=== PATIENT | female | born 1990 | race Two or more races ===

== ENCOUNTER 2020-11-22 08:13 | Inpatient (IN) ==
[2020-11-22] MEDS ORDERED: OXYTOCIN 30 UNITS/500 ML BAG IV PRN ×2 (08:42→11:06)
[2020-11-22 09:20] LABS: Hematocrit (blood only) 34.2 % (37-47); Hemoglobin 10.9 g/dL (12.0-16.0); Mean Corpuscular Hemoglobin 22.1 pg (25-34); Mean Corpuscular Hgb Conc 31.9 g/dL (32-36); Mean Corpuscular Volume 69.2 fL (80-100); Mean Platelet Volume 11.4 fL (7.4-10.4); Platelet Count 240 K/uL (130-400); RDW Coefficient of Variation 13.7 % (11.5-14.5); RDW Standard Deviation 34.3 fL (36.4-46.3); Red Blood Count 4.94 M/uL (4.2-5.4); White Blood Count 12.68 K/uL (4.8-10.8)
[2020-11-22] MEDS: LACTATED RINGER'S 1,000 ML IV PRN ×2 (11:29→19:10)
--- NOTE | 2020-11-22 18:33 | History & Physical Report ---
Date of Service November 22, 2020 Assessment & Plan (1) IUGR (intrauterine growth restriction) affecting care of mother: Plan: Admit for IOL. Reviewed patient's plan. Questions answered. Discussed that there may be times where, due to safety concerns and medical best practice, it may be recommended to deviate from her plan. She understands. Pitocin. Patient wants to try for as natural of a labor as possible. She wants to avoid AROM, epidural. Admission and Anticipated Discharge Date Admission Date: November 22, 2020 History of Present Illness Chief Complaint: IOL for IUGR Primary Care Provider: Nelson Thompson, DO 30 yo @ 38 0/, IOL for IUGR. complicated by: IUGR *TWICE Weekly NST's @ Dx. *TWICE Weekly DVP/WEEKLY Dopplers @ Dx. *Growth US Q4wks @ Dx. *Deliver @ 39wks (unless abnormal flow) Carrier of Alpha-thalassemia *recommend mfm and genetic consult *Genetics (07/23/20) *MFM consult (07/30/20) Monitor Hgb closely (no specific interval) offer montly US to check for hydrops (due to pt declines testing of FOB) offer SMA testing of FOB (pt declines) Reports she is SMA carrier, unsure if they will accept getting tested - 07/24 -will request records (genetics recs [facility] 14 for FOB tests for cf, sma, and alpha) pt declines testing of FOB. Rubella equivocal -for pp MMR Allergies Allergy/AdvReac Type Severity Reaction Status Date / Time No Known Allergies Allergy Verified 11/21/20 14:07 Home Medications Medication Instructions Recorded Confirmed Type prenat.vits,sapna,jzo-qmcm-xfwia 1 tab PO DAILY 11/22/20 11/22/20 History Patient History Medical History (Updated 11/22/20 @ 15:06 by Mika Bond MD) Abnormal glucose Annual physical exam H/O sprain of ankle Left anterior knee pain Microcytic anemia Thalassemia alpha carrier Surgical History No history of previous surgery Family History Grandfather (Paternal) Heart disease Social History Smoking Status: Never smoker Second Hand Exposure: No; Hx Alcohol Use: No Hx Substance Use: No Preferred Language: Turkish Communication Ability: Effective Visual Impairment: Limited Hearing Ability: Normal Dater Assembler Required: No Beliefs That Will Affect Care: None marital status: marital status details: Wesley (32) [phone] Current Living Situation: Spouse Current Living Situation Comment: Lives with spouse, 2 dogs current occupational status: employed current occupation: Researcher at [employer] Other Information That Helps Us Care for You: No Feels Safe at Home: Yes Safety Concerns: Feels Safe At This Time Childhood Exposure to Second-Hand Smoke: No Dental Care, Regularly: No Physical Activity Frequency: 5-6 Times per Week Physical Activity Frequency Comment: strengthing and cardio Seatbelt Use: always Sunscreen Use: Yes Do you think of yourself as: straight/heterosexual Assistive Devices: None Review of Systems All systems reviewed & are unremarkable except as noted in HPI & below Physical Exam Constitutional: WD/WN, vitals as above Respiratory: normal respiratory effort, lungs clear to auscultation no respiratory distress Cardiovascular: Rate/Rhythm: regular rate and regular rhythm Gastrointestinal (Abdomen): Inspection/Auscultation: abdomen normal to inspection Percussion/Palpation: abdomen soft; abdomen nontender Gravid. No s/s chorio or abruption. Skin: no rashes, warm and dry Psychiatric: A+Ox3, euthymic affect Results & Data ([facility]) Vital Signs (Past 12 Hours) Vital Signs Temp Pulse Resp BP 11/22/20 18:19 65 101/51 L 11/22/20 16:59 85 114/72 11/22/20 16:30 18 11/22/20 16:10 73 101/55 L 11/22/20 15:30 18 11/22/20 15:00 67 103/56 L 11/22/20 14:33 64 109/53 L 11/22/20 13:38 36.9 C 77 20 109/61 11/22/20 12:38 82 109/65 11/22/20 11:34 71 111/64 11/22/20 08:30 36.6 C 75 20 106/63 11/22/20 08:10 36.6 C 20 Coding Level of Care Code None Diagnoses IUGR (intrauterine growth restriction) affecting care of mother O36.5996
--- NOTE | 2020-11-22 19:16 | Labor Progress Brief Note ---
Date of Service November 22, 2020 Subjective Patient feeling ctx. FHT Cat 1 [place] Q 4 580/-2 Recommend AROM. Questions answered re: risks/benefits, patient and spouse want to think about whether she'll accept AROM. Update: patient discussed with her director gift, who recommended against AROM. Patient declines AROM. Assessment & Plan Admission and Anticipated Discharge Date Admission Date: November 22, 2020 Results & Data ([facility]) Vital Signs (Past 12 Hours) Vital Signs Temp Pulse Resp BP 11/22/20 19:10 36.8 C 18 11/22/20 19:06 62 117/64 11/22/20 18:19 65 101/51 L 11/22/20 16:59 85 114/72 11/22/20 16:30 18 11/22/20 16:10 73 101/55 L 11/22/20 15:30 18 11/22/20 15:00 67 103/56 L 11/22/20 14:33 64 109/53 L 11/22/20 13:38 36.9 C 77 20 109/61 11/22/20 12:38 82 109/65 11/22/20 11:34 71 111/64 11/22/20 08:30 36.6 C 75 20 106/63 11/22/20 08:10 36.6 C 20 Coding Level of Care Code None
--- NOTE | 2020-11-22 22:48 | Labor Progress Brief Note ---
Date of Service November 22, 2020 Subjective Increasing pressure with ctx. FHT Cat 1 [place] Q 2 6/80/-2 AROM clear fluid Assessment & Plan Admission and Anticipated Discharge Date Admission Date: November 22, 2020 Results & Data ([facility]) Vital Signs (Past 12 Hours) Vital Signs Temp Pulse Resp BP 11/22/20 21:18 67 107/57 L 11/22/20 20:09 73 105/57 L 11/22/20 19:10 36.8 C 18 11/22/20 19:06 62 117/64 11/22/20 18:19 65 101/51 L 11/22/20 16:59 85 114/72 11/22/20 16:30 18 11/22/20 16:10 73 101/55 L 11/22/20 15:30 18 11/22/20 15:00 67 103/56 L 11/22/20 14:33 64 109/53 L 11/22/20 13:38 36.9 C 77 20 109/61 11/22/20 12:38 82 109/65 11/22/20 11:34 71 111/64 Coding Level of Care Code None
--- NOTE | 2020-11-23 00:18 | Labor Progress Brief Note ---
Date of Service November 23, 2020 Subjective Uncomfortable. FHT Cat 1, early decels [place] Q 2-3 /0 Continue labor. Assessment & Plan Admission and Anticipated Discharge Date Admission Date: November 22, 2020 Results & Data ([facility]) Vital Signs (Past 12 Hours) Vital Signs Temp Pulse Resp BP 11/23/20 00:02 36.8 C 11/23/20 00:00 18 11/22/20 23:03 36.8 C 92 H 18 117/58 L 11/22/20 21:18 67 107/57 L 11/22/20 20:09 73 105/57 L 11/22/20 19:10 36.8 C 18 11/22/20 19:06 62 117/64 11/22/20 18:19 65 101/51 L 11/22/20 16:59 85 114/72 11/22/20 16:30 18 11/22/20 16:10 73 101/55 L 11/22/20 15:30 18 11/22/20 15:00 67 103/56 L 11/22/20 14:33 64 109/53 L 11/22/20 13:38 36.9 C 77 20 109/61 11/22/20 12:38 82 109/65 Coding Level of Care Code None
[2020-11-23] MEDS ORDERED: SODIUM CHLORIDE 0.9% INJ 10 ML VIAL ONE (01:50)
[2020-11-23] MEDS ORDERED: ePHEDrine sulfate 50 MG/ML AMP ONE (01:50)
[2020-11-23] MEDS ORDERED: fentaNYL citrate 100 MCG/2 ML VIAL ONE (01:50)
[2020-11-23] MEDS ORDERED: BUPIVACAINE 0.25% 30 ML VIAL ONE (01:50)
[2020-11-23] MEDS ORDERED: fentaNYL 2MCG/ML ROPIVACAINE 1.25MG/ML 100 ML BAG EPI ONE (01:50)
[2020-11-23] MEDS: LACTATED RINGER'S 1,000 ML IV PRN ×2 (02:00→03:29)
[2020-11-23] MEDS ORDERED: ONDANSETRON INJ 2 MG/ML 2 ML VIAL IV PRN (02:13)
[2020-11-23] MEDS ORDERED: ePHEDrine sulfate 50 MG/ML AMP IV PRN (02:13)
[2020-11-23] MEDS ORDERED: NALBUPHINE HCL INJ 10 MG/ML AMP IV PRN (02:13)
[2020-11-23] MEDS ORDERED: NALOXONE HCL 1 MG in SODIUM CHLORIDE 0.9% 1000ML 1,000 ML IV PRN (02:13)
[2020-11-23] MEDS ORDERED: diphenhydrAMINE 50 MG/ML VIAL IV PRN (02:13)
[2020-11-23] MEDS ORDERED: fentaNYL 2MCG/ML ROPIVACAINE 1.25MG/ML 100 ML BAG EPI PRN (02:13)
[2020-11-23] MEDS ORDERED: NALOXONE HCL 0.4 MG/1 ML VIAL/CARP IV PRN (02:13)
--- NOTE | 2020-11-23 02:18 | Anesthesiology Consultation ---
Date of Service November 23, 2020 Assessment & Plan Chart Review Chart Review: Patient NOT seen in Pre Admission Testing and Acceptable Risk for Labor Epidural Consults Requested none ASA ASA2 Proposed Anesthesia Anesthesia Type: Labor Epidural and CSE Risk / Benefits Reviewed With: PT / POA / Parent / Guardian, Accepts Plan and Informed Consent Obtained History Height/Weight Height: 5 ft 2 in Weight: 68.946 kg Allergies Allergy/AdvReac Type Severity Reaction Status Date / Time No Known Allergies Allergy Verified 11/21/20 14:07 Medications Home Medications Medication Instructions Recorded Confirmed Last Taken prenat.vits,sapna,aon-stym-ojbbq 1 tab PO DAILY 11/22/20 11/22/20 11/21/20 06:00 Active Medications Generic Name Dose Route Start Last Admin Trade Name Freq PRN Reason Stop Dose Admin Lactated Ringer's 1,000 mls @ 125 mls/hr 11/22/20 08:42 11/22/20 19:10 Lr IV 11/24/20 08:41 125 mls/hr .Q8H PRN Administration L&D Protocol Protocol Oxytocin 30 units in 500 mls @ 11 mls/hr 11/22/20 11:06 11/22/20 22:05 Pitocin IV 11/24/20 11:05 0.66 units/hr .Q24H PRN 11 mls/hr Labor Induction/Augmentation Titration Protocol 0.66 UNITS/HR NPO Date Last Intake of Fluids: 11/23/20 Time Last Intake of Fluids: 00:30 Date Last Intake of Solids: 11/22/20 Time Last Intake of Solids: 18:00 Past Medical History Medical History Abnormal glucose Annual physical exam H/O sprain of ankle Left anterior knee pain Microcytic anemia Thalassemia alpha carrier Exercise / Class Metabolic Activity II 4-5 Yardwork/Stairs/Walk up hill Past Family History Family History Grandfather (Paternal) Heart disease Past Surgical History Surgical History No history of previous surgery Past Anesthesia History No Hx of Anesthesia Complications and No Family Hx of Anesthesia Complications History of PONV No Hx of PONV and No Hx of Motion Sickness Social History Smoking Status: Never smoker Hx Alcohol Use: No Alcohol type: beer, wine and hard liquor Hx Substance Use: No substance use type: does not use Review of Systems no chest pain or sob Physical Exam Vital Signs Last Vital Signs Temp 36.8 C 11/23/20 00:59 Pulse 100 H 11/23/20 00:59 Resp 18 11/23/20 01:30 BP 120/56 L 11/23/20 00:59 ENMT Mouth: no TMJ abnormality Thyromental Distance: > or= 3.5 Finger Breadths Mallampati Class: II Neck normal visual inspection Respiratory normal respiratory effort Auscultation: lungs clear to auscultation bilaterally Cardiovascular Rate/Rhythm: regular rate and regular rhythm Musculoskeletal Spine: normal cervical ROM Neurologic moves all extremities Psychiatric Orientation: alert and oriented x 3 Testing Laboratory Results 11/22/20 09:05
[2020-11-23] MEDS ORDERED: BENZOCAINE 20% AER SPR 82.5 GM CAN EXT PRN (04:48)
[2020-11-23] MEDS ORDERED: HYDROCORTISONE ACETATE 25 MG SUPP PR PRN (04:48)
[2020-11-23] MEDS ORDERED: IBUPROFEN 600 MG TAB PO PRN (04:48)
[2020-11-23] MEDS ORDERED: SUPERCREAM 0.870% 15 GM JAR EXT PRN (04:48)
[2020-11-23] MEDS ORDERED: oxyCODONE/ACETAMINOPHEN 5mg/325mg TAB PO PRN (04:48)
[2020-11-23] MEDS ORDERED: ACETAMINOPHEN 325 MG TAB PO PRN (04:48)
[2020-11-23] MEDS ORDERED: OXYTOCIN 30 UNITS/500 ML BAG IV PRN ×2 (04:48→04:52)
[2020-11-23] MEDS ORDERED: bisacodyL 10 MG SUPP PR PRN (04:48)
[2020-11-23] MEDS ORDERED: DIPHTHERIA/TETANUS/PERTUSSIS 0.5 ML SYR/VIAL IM ONE (04:48)
--- NOTE | 2020-11-23 04:51 | Delivery Summary ---
Vaginal Delivery Summary Date of Service November 23, 2020 Vaginal Delivery Summary and 2nd Degree LAC Vaginal Delivery Summary: Pre-delivery diagnoses: 30yo @ 38 /, IOL for IUGR, Carrier of Alpha- thalassemia, SMA carrier, Rubella equivocal Post-delivery diagnoses: same Procedure: spontaneous vaginal delivery, repair of 2nd degree perineal laceration Surgeon: Ginger Burks DO Complications: none Findings: Viable female . Apgars: 8/9 . Weight pending, please see nursery records Estimated blood loss: 300ml Description of delivery: The patient progressed to complete with epidural anesthesia. She then began to push. She spontaneously vaginally delivered a viable from the cephalic presentation. The head delivered in BRANDY position. The anterior shoulder delivered, followed by the posterior shoulder, followed by the body. No nuchal. The baby was placed on mother's abdomen and a spontaneous cry was heard. Delayed cord clamping was employed, and the cord was doubly clamped and cut. Cord blood was obtained. The placenta was delivered spontaneously intact with a 3-vessel cord. The uterus and vagina were swept of clots and debris. IV pitocin was given. The uterus became firm. The cervix, vagina, and perineum were inspected and 2nd degree perineal laceration was noted, repaired in standard fashion. Excellent hemostasis was observed. The mother and baby are recovering in stable and good condition in the room. Sponge, needle and instrument counts were correct x 2. Ginger Burks DO [facility] Vaginal Delivery Charge Vaginal Delivery Codes: 70805 global code for the antepartum, delivery, and post- Delivery Type Details: and 2nd Degree LAC
--- NOTE | 2020-11-23 08:24 | Anesthesia Procedure Note ---
Date of Service November 23, 2020 Anesthesia Post Epidural Note Vital Signs Vital Signs: Temp Pulse Resp BP Pulse Ox 37.2 C 101 H 18 101/66 97 11/23/20 07:44 11/23/20 07:44 11/23/20 07:44 11/23/20 07:44 11/23/20 04:26 Pain Intensity Lower Abdomen: Pain Intensity: 0 Notes Mental Status: alert / awake / arousable Nausea / Vomiting: adequately controlled Pain: adequately controlled Airway Patency, RR, SpO2: stable & adequate BP & HR: stable & adequate Hydration State: stable & adequate Neuraxial Anesthesia: was administered and sensory block is resolving Anesthetic Complications: no major complications apparent Epidural: Removed without complications and With tip intact
[2020-11-23] MEDS: PRENATAL VITAMIN 1 TAB PO SCH (08:52)
[2020-11-23] MEDS: DOCUSATE SODIUM 100 MG CAP PO SCH ×3 (08:52→20:37)
[2020-11-24 05:42] LABS: Hematocrit (blood only) 30.2 % (37-47); Hemoglobin 9.5 g/dL (12.0-16.0)
--- NOTE | 2020-11-24 08:19 | Obstetrical Progress Note ---
Date of Service November 24, 2020 Assessment & Plan (1) state: Doing well, meeting pp milestones. Plan for d/c home tomorrow. MMR and iron ordered Subjective Ambulation: ambulating normally Voiding: no voiding problems Passing Gas:: Yes Diet Tolerance:: regular diet Lochia:: Moderate Feeding Type:: breast feeding Pain well managed with medication Review of Systems Denies fevers, chills, n/v, TOLLIVER, CP, SOB Physical Exam Constitutional WD/WN, vitals as above no acute distress Respiratory normal respiratory effort; no respiratory distress and no labored breathing Cardiovascular Rate/Rhythm: regular rate and regular rhythm Gastrointestinal (Abdomen) Percussion/Palpation: abdomen soft; abdomen nontender fundus firm at umbilicus and NT Musculoskeletal BLE symmetric, nonerythematous, nontender Results & Data ([facility]) Vital Signs (Past 12 Hours) Vital Signs Temp Pulse Resp BP 11/24/20 04:15 97.7 F 73 18 115/80 11/23/20 23:15 97.9 F 66 18 110/69
[2020-11-24] MEDS: PRENATAL VITAMIN 1 TAB PO SCH (08:35)
[2020-11-24] MEDS: DOCUSATE SODIUM 100 MG CAP PO SCH ×2 (08:38→22:10)
[2020-11-24] MEDS: FERROUS SULFATE 325 MG TAB PO SCH (08:38)
[2020-11-24] MEDS ORDERED: MEASLES, MUMPS & RUBELLA VIRUS VIAL SQ ONE (10:00)
[2020-11-24] MEDS ORDERED: bisacodyL 5 MG TABEC PO SCH (20:00)
[2020-11-24] MEDS ORDERED: bisacodyL 5 MG TABEC PO ONE (22:09)
--- NOTE | 2020-11-25 07:26 | Obstetrical Progress Note ---
Date of Service <Rekharandy Trevizo DO - Last Filed: 11/25/20 07:26> November 25, 2020 Assessment & Plan <Rekha Trevizo DO - Last Filed: 11/25/20 07:26> (1) Encounter for care and examination after delivery: 30yo post day 2, complicated by IUGR and history alpha thalasemia, currently doing well -continue colace for constipation -vital signs reviewed and WNL (Tmax 36.6) -Blood Type O+, GBS-, Rubella Equivocal -Encourage ambulation, monitor and control pain with Motrin, Percocet PRN, resume regular diet, monitor lochia -encourage breast feeding Day #:: 2 <Cecilia Agosto MD - Last Filed: 11/25/20 07:40> (1) Encounter for care and examination after delivery: Subjective <Rekharandy Trevizo DO - Last Filed: 11/25/20 07:26> Ambulation: ambulating normally Voiding: no voiding problems Passing Gas:: Yes (still constipated) Diet Tolerance:: regular diet Lochia:: Small Feeding Type:: breast feeding Current Pain Level(1-10): 2 (pain well controlled with medication) Review of Systems negative fever chills nausea vomitting diarrhea constipation SOB palpitations headache dizziness Physical Exam <Rekharandy Trevizo DO - Last Filed: 11/25/20 07:26> General: Alert, oriented. No acute distress. Cardiac: Regular rate and rhythm, no murmurs/rubs/gallops. Respiratory: Clear to auscultation bilaterally a/p, no wheezes/rales/rhonchi. No increased work of breathing. Symmetrical chest rise. No respiratory distress. Abdomen: Soft, nontender, nondistended. Bowel sounds present. Uterus: Uterine fundus firm, palpable at umbilicus. Lower Extremities: No lower extremity edema or swelling. No deep calf pain. Nura's negative bilaterally.. Results & Data ([facility]) <Rekharandy Trevizo DO - Last Filed: 11/25/20 07:26> Vital Signs (Past 12 Hours) Vital Signs Temp Pulse Resp BP 11/24/20 23:35 36.5 C 68 16 118/74 11/24/20 19:30 36.4 C L 77 18 115/67 Medications Administered Current Inpatient Medications Acetaminophen (Acetaminophen 325 Mg Tab) 650 mg PO Q6H PRN PRN Reason: Pain/TOLLIVER/Fever Stop: 12/23/20 04:47 Benzocaine (Benzocaine 20% Aer Spr 82.5 Gm Can) 1 appln EXT PRN PRN PRN Reason: Perineal Discomfort Stop: 12/23/20 04:47 Last Admin: 11/23/20 08:53 Dose: 1 appln Documented by: Bisacodyl (Bisacodyl 10 Mg Supp) 10 mg NV DAILY PRN PRN Reason: No BM on 2nd post- day Stop: 12/23/20 04:47 Cocaine HCl (Supercream 0.870% 15 Gm Jar) 1 gm EXT BID PRN PRN Reason: Hemorrhoidal Inflammation Stop: 12/07/20 04:47 Docusate Sodium (Docusate Sodium 100 Mg Cap) 100 mg PO DAILY@ [facility] Stop: 12/23/20 07:59 Last Admin: 11/24/20 22:10 Dose: 100 mg Documented by: Ferrous Sulfate (Ferrous Sulfate 325 Mg Tab) 325 mg PO QAM [facility] Stop: 12/24/20 08:59 Last Admin: 11/24/20 08:38 Dose: 325 mg Documented by: Hydrocortisone (Hydrocortisone Acetate 25 Mg Supp) 25 mg NV BID PRN PRN Reason: Hemorrhoidal Inflammation Stop: 12/23/20 04:47 Oxytocin (Pitocin) 30 units in 500 mls @ 333.333 mls/hr IV .Q1H30M PRN; Protocol PRN Reason: Bleeding Control Stop: 12/23/20 04:47 Last Titration: 11/23/20 05:35 Dose: Infused Documented by: Oxytocin (Pitocin) 30 units in 500 mls @ 333.333 mls/hr IV .Q1H30M PRN; Protocol PRN Reason: Bleeding Control Stop: 12/23/20 04:51 Ibuprofen (Ibuprofen 600 Mg Tab) 600 mg PO Q4H PRN PRN Reason: Pain/TOLLIVER/Cramping/Fever Stop: 12/23/20 04:47 Oxycodone/Acetaminophen (Oxycodone/Acetaminophen 5mg/325mg Tab) 1 tab PO Q4H PRN PRN Reason: Pain not relieved by... Stop: 12/07/20 04:47 Prenat Multivit/Install Technician/Iron/Folic Ac ( Vitamin 1 Tab) 1 tab PO DAILY@08 BARBARA Stop: 12/23/20 07:59 Last Admin: 11/24/20 08:35 Dose: 1 tab Documented by: <Cecilia Agosto MD - Last Filed: 11/25/20 07:40> Co-Signing Physician Notes Resident Physician Supervision Note: I was present with Dr. Trevizo during the history and exam. I discussed the case with the resident and agree with the findings and plan as documented in the note. Any exceptions or clarifications are listed here: PP2 s/p , meeting pp milestones. VSS, exam benign and wnl. Stable for d/c home today Documented By: Cecilia Agosto MD Resident Activity Tracking <Rekha Trevizo DO - Last Filed: 11/25/20 07:26> Resident Involvement: Resident Care Provided Care Provided: OB Delivery
[2020-11-25] MEDS: DOCUSATE SODIUM 100 MG CAP PO SCH (08:29)
[2020-11-25] MEDS: PRENATAL VITAMIN 1 TAB PO SCH (08:29)
[2020-11-25] MEDS: FERROUS SULFATE 325 MG TAB PO SCH (08:29)
== END 2020-11-25 11:53 | disposition home or self-care (01) | DRG 807 ==
LOC: 4S1 08:13 → 4S2 11-23 06:55

== ENCOUNTER 2023-04-27 05:04 | Inpatient (IN) ==
[2023-04-27] MEDS ORDERED: OXYTOCIN 30 UNITS/NSS 30 UNITS/500 ML BAG IV PRN ×2 (05:56→11:45)
[2023-04-27] MEDS ORDERED: LIDOCAINE 1% LOCAL 20 ML VIAL INFIL PRN (05:56)
[2023-04-27 06:37] LABS: Hematocrit (blood only) 40.3 % (37.0-47.0); Hemoglobin 12.2 g/dl (12.0-16.0); Mean Corpuscular Hemoglobin 21.1 pg (25.0-34.0); Mean Corpuscular Hgb Conc 30.3 g/dL (32.0-36.0); Mean Corpuscular Volume 69.8 fL (80.0-100.0); Mean Platelet Volume 10.7 fL (9.4-12.4); Platelet Count 210 K/uL (130-400); RDW Coefficient of Variation 14.1 % (11.5-14.5); RDW Standard Deviation 34.4 fL (36.4-46.3); Red Blood Count 5.77 M/uL (4.20-5.40); White Blood Count 10.08 K/ul (4.8-10.8)
--- NOTE | 2023-04-27 06:55 | History & Physical Report ---
Date of Service April 27, 2023 Assessment & Plan (1) 38 weeks gestation of : (2) PROM (premature rupture of membranes): Plan admit, iv, labs. recommended induction of labor and given few ctx, po cytotec, risks/benefits reviewed. pt wants to think about it, wants "no interventions." Given rom with no labor explained to pt that difficult situation, induction of labor rec to dec risk of infection. she will think about it. fhts categ 1. Admission and Anticipated Discharge Date Admission Date: April 27, 2023 History of Present Illness Chief Complaint: srom clear fluid at 0315 today Primary Care Provider: Nelson Thompson DO 32yo at 38+wks ega presents to L&D with above cc. She denied regular ctx at first but noting more regular ctx now. No vb. Standing by bedside, does not want "interventions." Just put back on monitor, tracing before with <3ctx in 10min. PNC c /b alpha thal carrier, fob not tested, sma carrier, fob not tested. PNL rh pos, ri, gbs neg. OBH: svdx 1 GYNH: nl paps no stds Allergies Allergy/AdvReac Type Severity Reaction Status Date / Time No Known Allergies Allergy Verified 04/22/23 10:36 Home Medications Medication Instructions Recorded Confirmed Type prenat.vits,sapna,noz-jrtq-argnv 1 tab PO DAILY 10/01/22 04/27/23 History Patient History Medical History Abnormal glucose H/O sprain of ankle IUGR (intrauterine growth restriction) affecting care of mother Left anterior knee pain Microcytic anemia Thalassemia alpha carrier Surgical History No history of previous surgery Family History (Updated 05/28/22 @ 09:45 by Karlene Brewer LPN) Grandfather (Paternal) Heart disease Denies family history of Ovarian cancer Prostate cancer Diabetes Myocardial infarction Breast cancer Lung cancer Colorectal cancer Stroke Social History (Updated 10/01/22 @ 09:54 by Sayda Guy) Smoking Status: Never smoker Second Hand Exposure: No; Do You Dip or Chew Tobacco: No; Hx Alcohol Use: No Hx Substance Use: No Preferred Language: Iraqi Communication Ability: Effective Visual Impairment: Limited Hearing Ability: Normal Supervisor Lens Generating Required: No Beliefs That Will Affect Care: None marital status: marital status details: Wesley (32) [phone] Current Living Situation: Spouse and Family Current Living Situation Comment: Lives with spouse, daughter, 2 dogs. current occupational status: employed current occupation: Researcher at [employer] How many Children do You have: 1 Other Information That Helps Us Care for You: No Feels Safe at Home: Yes Safety Concerns: Feels Safe At This Time Childhood Exposure to Second-Hand Smoke: No Diet: regular caffeine: No Dental Care, Regularly: Yes Physical Activity Frequency: Does not Exercise Seatbelt Use: always Sunscreen Use: Yes Do you think of yourself as: straight/heterosexual Assistive Devices: Glasses Review of Systems as per Subjective / HPI Physical Exam Constitutional: WD/WN, vitals as above Respiratory: normal respiratory effort, lungs clear to auscultation Cardiovascular: Rate/Rhythm: regular rate and regular rhythm Gastrointestinal (Abdomen): soft gravid nt Musculoskeletal: no edema Neurologic: grossly normal Psychiatric: A+Ox3, euthymic affect Genitourinary: Manual OB Exam: + cervical dilation (1.5cm per nurse) OB Exam Monitor Tracing: + external FHT monitor used, + external uterine monitor used (irregular), + category I and + normal FHT variability Results & Data Vital Signs (Past 12 Hours) Vital Signs Pulse Resp BP 04/27/23 05:16 18 04/27/23 05:12 77 125/67 Code Status & VTE Plan VTE Prophylaxis Plan VTE Prophylaxis will be ordered: No Coding Level of Care Code None Diagnoses 38 weeks gestation of Z3A.38 PROM (premature rupture of membranes) O42.90
[2023-04-27] MEDS: LACTATED RINGER'S 1,000 ML IV PRN ×2 (07:15→10:25)
[2023-04-27] MEDS ORDERED: fentaNYL citrate PF 100 MCG/2 ML VIAL ONE (07:27)
[2023-04-27] MEDS ORDERED: ePHEDrine sulfate 50 MG/ML AMP ONE (07:27)
[2023-04-27] MEDS ORDERED: fentANYL 2 MCG/ML BUPIVacaine 0.125%-NSS 100ML BAG ONE (07:28)
[2023-04-27] MEDS ORDERED: LIDOCAINE 2%/EPINEPHRINE 1:200,000 20 ML PF ONE (07:28)
[2023-04-27] MEDS ORDERED: BUPIVACAINE 0.25% PF 30 ML VIAL ONE (07:28)
[2023-04-27] MEDS ORDERED: SODIUM CHLORIDE 0.9% PF INJ 10 ML VIAL ONE (07:28)
[2023-04-27] MEDS ORDERED: diphenhydrAMINE 50 MG/ML VIAL IV PRN (07:38)
[2023-04-27] MEDS ORDERED: SODIUM CHLORIDE 0.9% PF INJ 10 ML VIAL EPI PRN (07:38)
[2023-04-27] MEDS ORDERED: NALBUPHINE HCL 5 MG in SYRINGE 0 ML IV PRN (07:38)
[2023-04-27] MEDS ORDERED: fentANYL 2 MCG/ML BUPIVacaine 0.125%-NSS 100ML BAG EPI PRN (07:38)
[2023-04-27] MEDS ORDERED: SODIUM CHLORIDE 0.9% PF INJ 10 ML VIAL EPI STA (07:38)
[2023-04-27] MEDS ORDERED: LIDOCAINE 2%/EPINEPHRINE 1:200,000 20 ML PF EPI STA (07:38)
[2023-04-27] MEDS ORDERED: LIDOCAINE 2% MPF LOCAL 5 ML VIAL EPI PRN (07:38)
[2023-04-27] MEDS ORDERED: fentaNYL citrate PF 100 MCG/2 ML VIAL EPI STA (07:38)
[2023-04-27] MEDS ORDERED: BUPIVACAINE 0.25% PF 30 ML VIAL EPI STA (07:38)
[2023-04-27] MEDS ORDERED: ROPIVACAINE 0.5% PF 5 MG/ML 20 ML VIAL EPI PRN (07:38)
[2023-04-27] MEDS ORDERED: NALOXONE HCL 0.4 MG/1 ML VIAL/CARP IV PRN (07:38)
[2023-04-27] MEDS ORDERED: fentaNYL citrate PF 100 MCG/2 ML VIAL EPI PRN (07:38)
[2023-04-27] MEDS ORDERED: BUPIVACAINE 0.25% PF 30 ML VIAL EPI PRN (07:38)
[2023-04-27] MEDS ORDERED: ePHEDrine sulfate 50 MG/ML AMP IV PRN (07:38)
[2023-04-27] MEDS ORDERED: NALOXONE HCL 1 MG in SODIUM CHLORIDE 0.9% 1,000 ML IV PRN (07:38)
--- NOTE | 2023-04-27 07:38 | Anesthesiology Consultation ---
Date of Service April 27, 2023 Assessment & Plan (1) Encounter for pre-operative examination: Chart Review Chart Review: Patient NOT seen in Pre Admission Testing and Acceptable Risk for Labor Epidural Consults Requested none History Height/Weight Height: 5 ft 2 in Weight: 70.307 kg Allergies Allergy/AdvReac Type Severity Reaction Status Date / Time No Known Allergies Allergy Verified 04/22/23 10:36 Medications Home Medications Medication Instructions Recorded Confirmed Last Taken prenat.vits,sapna,jyk-yqva-jsohk 1 tab PO DAILY 10/01/22 04/27/23 04/26/23 Past Medical History Medical History IUGR (intrauterine growth restriction) affecting care of mother Thalassemia alpha carrier Microcytic anemia Abnormal glucose H/O sprain of ankle Left anterior knee pain Past Family History Family History Grandfather (Paternal) Heart disease Denies family history of Ovarian cancer Prostate cancer Diabetes Myocardial infarction Breast cancer Lung cancer Colorectal cancer Stroke Past Surgical History Surgical History No history of previous surgery Social History Smoking Status: Never smoker Do You Dip or Chew Tobacco: No Hx Alcohol Use: No Alcohol type: beer, wine and hard liquor Hx Substance Use: No substance use type: does not use Physical Exam Vital Signs Last Vital Signs Pulse 92 H 04/27/23 07:05 Resp 18 04/27/23 05:16 BP 128/71 04/27/23 07:05 Testing Laboratory Results 04/27/23 06:16
[2023-04-27] MEDS ORDERED: miSOPROStoL 200 MCG TAB ONE (11:43)
[2023-04-27] MEDS ORDERED: oxyCODONE/ACETAMINOPHEN 5mg/325mg TAB PO PRN (11:45)
[2023-04-27] MEDS ORDERED: bisacodyL 10 MG SUPP PR PRN (11:45)
[2023-04-27] MEDS ORDERED: BENZOCAINE 20% SPRY 85 APPLN/85 GM CAN EXT PRN (11:45)
[2023-04-27] MEDS ORDERED: ACETAMINOPHEN 325 MG TAB PO PRN (11:45)
[2023-04-27] MEDS ORDERED: DIPHTHERIA/TETANUS/PERTUSSIS Vaccine (Tdap, Age 7+yrs) 0.5mL SYR/VL IM ONE (11:45)
[2023-04-27] MEDS ORDERED: IBUPROFEN 600 MG TAB PO PRN (11:45)
[2023-04-27] MEDS ORDERED: miSOPROStoL 200 MCG TAB PR ONE (11:45)
[2023-04-27] MEDS ORDERED: HYDROCORTISONE ACETATE 25 MG SUPP PR PRN (11:45)
--- NOTE | 2023-04-27 11:51 | Delivery Summary ---
Vaginal Delivery Summary Date of Service April 27, 2023 Vaginal Delivery Summary and 1st Degree LAC Patient is a 32-year-old 2 para 1-0-0-1 female EDC of 05/08/2023 who presented with spontaneous rupture of membranes and spontaneous onset of regular contractions. She requested epidural analgesia which was effective. She progressed to full dilation and pushed effectively over intact perineum for delivery of a viable male male . After the head was delivered there was a loose nuchal cord which was reduced prior to delivering the rest the without maternal effort. He was placed on mother's abdomen for further attention and drying. He was vigorous crying and moving all 4 limbs. After cord blood was obtained, the placenta was expressed intact with a three-vessel cord. bleeding was controlled with dilute Pitocin and fundal massage. However the bleeding continued to be brisk, and she was given 1000 mcg of Cytotec rectally. At this point bleeding subsided. A first-degree perineal laceration was repaired with 3-0 chromic in usual fashion. Estimated blood loss was 500 cc. Mother and were doing well after delivery. [facility] [place]ag[place] Delivery Charge Delivery Type Details: and 1st Degree LAC
--- NOTE | 2023-04-27 12:05 | Anesthesia Procedure Note ---
Date of Service April 27, 2023 Anesthesia Post Epidural Note Vital Signs Vital Signs: Pulse Resp BP Pulse Ox 85 18 115/62 97 04/27/23 11:52 04/27/23 05:16 04/27/23 11:52 04/27/23 11:04 Pain Intensity Abdomen: Pain Intensity: 0 Notes Mental Status: alert / awake / arousable and participated in evaluation Nausea / Vomiting: adequately controlled Pain: adequately controlled Airway Patency, RR, SpO2: stable & adequate BP & HR: stable & adequate Hydration State: stable & adequate Neuraxial Anesthesia: was administered and sensory block is resolving Anesthetic Complications: no major complications apparent and Pt Satisfied with anesthetic care Epidural: Removed without complications and With tip intact Notes: patient reported bried headache immediately after epidural placement, no longer present
[2023-04-27] MEDS: DOCUSATE SODIUM 100 MG CAP PO SCH (21:49)
[2023-04-28 06:24] LABS: Hematocrit (blood only) 32.8 % (37.0-47.0); Hemoglobin 10.4 g/dl (12.0-16.0); Mean Corpuscular Hemoglobin 21.7 pg (25.0-34.0); Mean Corpuscular Hgb Conc 31.7 g/dL (32.0-36.0); Mean Corpuscular Volume 68.3 fL (80.0-100.0); Mean Platelet Volume 11.7 fL (9.4-12.4); Platelet Count 209 K/uL (130-400); RDW Coefficient of Variation 13.6 % (11.5-14.5); RDW Standard Deviation 32.5 fL (36.4-46.3); White Blood Count 14.09 K/ul (4.8-10.8)
[2023-04-28] MEDS: DOCUSATE SODIUM 100 MG CAP PO SCH ×2 (07:55→20:01)
[2023-04-28] MEDS: PRENATAL VITAMIN 1 TAB PO SCH (07:55)
--- NOTE | 2023-04-28 08:09 | Obstetrical Progress Note ---
Date of Service April 28, 2023 Assessment & Plan (1) Encounter for care and examination after delivery: Plan I suspect she has muscle stiffness in her neck and that this is not a spinal headache will try tylenol and motrin for the discomfort along with heat continue current care plan Subjective Ambulation: ambulating normally Voiding: no voiding problems Passing Gas:: Yes Diet Tolerance:: regular diet Lochia:: Moderate Feeding Type:: breast feeding c/o neck stiffness which heat helps but not for long. if she massages the area it feels better. does not radiate to the front of her head. having some vasomotor symptoms as well Review of Systems All systems reviewed & are unremarkable except as noted in HPI & below Physical Exam Constitutional WD/WN, vitals as above Psychiatric A+Ox3, euthymic affect Genitourinary OB Exam Abdomen: + fundal height Fundus: + firm and + relation to umbilicus (3 below ) Results & Data Vital Signs (Past 12 Hours) Vital Signs Temp Pulse Resp BP Pulse Ox O2 Del Method 04/28/23 04:30 98.1 F 66 16 100/61 98 Room Air 04/27/23 23:50 97.9 F 67 18 121/73 98 Room Air
[2023-04-28] MEDS ORDERED: ACETAMINOPHEN 325 MG TAB PO PRN (08:10)
[2023-04-28] MEDS ORDERED: bisacodyL 5 MG TABEC PO SCH (20:00)
[2023-04-29] MEDS: DOCUSATE SODIUM 100 MG CAP PO SCH (07:46)
[2023-04-29] MEDS: PRENATAL VITAMIN 1 TAB PO SCH (07:46)
--- NOTE | 2023-04-29 08:20 | Obstetrical Progress Note ---
Date of Service April 29, 2023 Assessment & Plan (1) Encounter for supervision of normal in multigravida, antepartum: PPD#2 doing well. DC home, discussed instructions. Followup 6w in office. Subjective Ambulation: ambulating normally Voiding: no voiding problems Diet Tolerance:: regular diet Lochia:: Moderate Review of Systems All systems reviewed & are unremarkable except as noted in HPI & below Physical Exam Constitutional WD/WN, vitals as above no acute distress Respiratory normal respiratory effort Cardiovascular Rate/Rhythm: regular rate and regular rhythm Gastrointestinal (Abdomen) Inspection/Auscultation: abdomen normal to inspection; abdomen not distended Percussion/Palpation: abdomen soft Genitourinary OB Exam Abdomen: + fundal height Fundus: + firm; not tender Results & Data Vital Signs (Past 12 Hours) Vital Signs Temp Pulse Resp BP Pulse Ox O2 Del Method 04/29/23 00:09 36.6 C 63 16 117/76 100 Room Air
[2023-04-29] MEDS ORDERED: BUTALBITAL/ACETAMIN/CAFFEINE TAB PO PRN (09:14)
--- NOTE | 2023-04-29 09:37 | Anesthesia Procedure Note ---
Date of Service April 29, 2023 Anesthesia Post Epidural Note Vital Signs Vital Signs: Temp Pulse Resp BP Pulse Ox O2 Del Method 36.5 C 69 18 109/70 99 Room Air 04/29/23 07:45 04/29/23 07:45 04/29/23 07:45 04/29/23 07:45 04/29/23 07:45 04/29/23 07:45 Pain Intensity Abdomen: Pain Intensity: 0 Head: Pain Intensity: 3 Notes Mental Status: alert / awake / arousable and participated in evaluation Nausea / Vomiting: adequately controlled Pain: see Notes below Airway Patency, RR, SpO2: stable & adequate BP & HR: stable & adequate Hydration State: stable & adequate Neuraxial Anesthesia: was administered and sensory block resolved Anesthetic Complications: see Notes below and Pt Satisfied with anesthetic care Notes: Patient evaluated day 2 after for headache. CSE performed 04/27/22, x2 attempts in paramedian approach. Patient noted headache immediately after placement that shortly after resolved. Symptoms began this morning at 6 AM with severe neck stiffness and head back behind eyes bilaterally. Symptoms resolve when laying flat and are worse sitting up or standing. Patient was sitting up in bed eating breakfast when I saw her this morning. She was tearful due to neck pain and stiffness She denies fever, chills, weakness, tingling sensation. She denies history of headache. She does not drink caffeine. Sensation and strength intact bilaterally. Epidural site without erythema, swelling, or tenderness. Patient feels she is unable to care for baby due to symptoms. Likey 2/2 to PDPH vs mirgraine vs tension headache. Discussed options for treatment including oral medication vs epidural blood patch. Given severe symptoms, recommended EBP prior to discharge today. Patient would like to discuss with and OB prior to any procedure. Ordered fiorcet in meantime. Will follow up later today.
[2023-04-29 10:53] LABS: Hematocrit (blood only) 34.1 % (37.0-47.0); Hemoglobin 10.5 g/dl (12.0-16.0)
--- NOTE | 2023-04-29 12:15 | Anesthesia Procedure Note ---
Anesthesia Procedure Note Epidural Blood Patch Procedure Note Vital Signs: BP 109/70 HR 69 RR 18 T 36.5 O2 99 Date of procedure: 04/29/23 Consent: Risk / Benefits Reviewed With: PT / POA / Parent / Guardian, Accepts Plan, Informed Consent Obtained and All Questions Answered Risks include: Failure of technique, Back pain, Infection, Bleeding, Nerve injury and Dural puncture Time out completed: Yes Premedication: None Position: Sitting Surgical Prep: Hand hygeine: Alcohol based hand rub Equipment/Supplies: Cap, Sterile gown, Sterile gloves, Sterile drapes and Sterile procedures used Skin prep: Duraprep Local medication: 1% Lidocaine (ml) Venous access site: Other (Left hand) Site: Midline Attempts: 1 Procedure Summary: Loss achieved at 4 cm. 14 cc of blood injected. Symptoms improved. No complication. Post-Procedure: Pt hemodynamically stable, Pt tolerates well and No complications
== END 2023-04-29 16:15 | disposition home or self-care (01) | DRG 807 ==
LOC: OPB 05:04 → 4S1 05:07 → 4E2 16:06